=== PATIENT | female | born 1940 | race Caucasian/White ===

== ENCOUNTER 2021-08-21 14:48 | Inpatient (IN) | payer MEDICARE, OTHER ==
[~2021-08-21] VITALS: Ht 160 cm; Wt 71.0 kg
[2021-08-21 15:16] LABS: HEMATOCRIT 46.5 % (37.0-47.0); HEMOGLOBIN 15.4 g/dl (12.5-16.0); MEAN CELL VOLUME 101 fl (80.0-100.0); MEAN CORPUSCULAR HEMOGLOBIN 33 pg (27-31); MEAN CORPUSCULAR HGB CONC 33 g/dl (33.0-37.0); MEAN PLATELET VOLUME 8.9 fl (7.4-10.4); PLATELET COUNT 289 K/mm3 (130-400); RED BLOOD COUNT 4.61 M/mm3 (4.10-5.30); REDCELL DISTRIBUTION WIDTH-CV 12.7 % (11.5-14.5)
[2021-08-21 15:34] LABS: ALBUMIN 3.2 gm/dL (3.4-4.8); BILIRUBIN,TOTAL 0.6 mg/dL (0.2-1.2); CALCIUM 9.4 mg/dL (8.4-10.2); CREATININE, serum 0.67 mg/dL (0.57-1.11); POTASSIUM 4.4 mmol/L (3.5-4.5); TOTAL PROTEIN 7.6 gm/dL (6.2-8.1)
[2021-08-21 15:59] LABS: ARTERIAL BLD GAS O2 SATURATION 92.2 % (92-100); ARTERIAL BLD GAS TCO2 CT 34.3; ARTERIAL BLOOD GAS BASE EXCESS 5.6 (-2-2); ARTERIAL BLOOD GAS HCO3 32.6 meq/L (22-26); ARTERIAL BLOOD GAS PCO2 56.3 mmHg (35-45); ARTERIAL BLOOD GAS PO2 64.2 mmHg (80-100); ARTERIAL BLOOD GAS pH 7.38 (7.35-7.45)
[2021-08-21 16:12] LABS: BAND 4 % (0-10); LYMPHOCYTE 7 % (20.0-51.0); NEUTROPHILS 77 % (42.0-75.2); PLATELET ESTIMATE NORMAL (NORMAL)
[2021-08-21] MEDS ORDERED: PREDNISONE20 MG PO (17:00)
[2021-08-21] MEDS ORDERED: NORVASC 5MG5 MG/TAB PO (17:00)
[2021-08-21] MEDS ORDERED: LASIX 20MG TABL20 MG PO (17:00)
[2021-08-21] MEDS ORDERED: IPRATROPIUM BROM3 M1 IH (17:00)
[2021-08-21] MEDS ORDERED: ZITHROMAX 250M250 MG PO (17:02)
[2021-08-21] MEDS ORDERED: BENICAR 20MG TA20 MG PO (17:02)
[2021-08-21] MEDS ORDERED: ZOCOR 20MG20 MG PO (17:03)
[2021-08-21] MEDS ORDERED: TRELEGY ELLIPT1 EACH IH (17:03)
[2021-08-21] MEDS ORDERED: RESTASIS0.05% OP (17:05)
[2021-08-21] MEDS ORDERED: ASPIRIN 81M81 MG/TA2 PO ×2 (17:14)
[2021-08-21 17:25] VITALS: BP 113/53; PULSE 79; TEMP 97.8
[2021-08-21] MEDS ORDERED: TRIAMCINOLONE A15 GM TP (17:45)
[2021-08-21] MEDS ORDERED: CALCIUM 600MG+D1 TAB PO (17:48)
[2021-08-21] MEDS ORDERED: ONE DAILY ESSE0.5 M1 PO (17:48)
[2021-08-21 20:04] VITALS: BP 110/60; PULSE 85; TEMP 98.2
--- NOTE | 2021-08-21 20:24 | NUR ---
TX GIVEN VIA MOUTHPIECE, TOLERATED WELL. O2 NC ON 6L BEFORE AND AFTER TX.
[2021-08-21 23:40] VITALS: BP 105/51; PULSE 79; TEMP 98.2
[2021-08-22 04:08] VITALS: BP 131/58; PULSE 87; TEMP 97.9
[2021-08-22 05:54] LABS: HEMATOCRIT 42.4 % (37.0-47.0); HEMOGLOBIN 14.1 g/dl (12.5-16.0); MEAN CELL VOLUME 101 fl (80.0-100.0); MEAN CORPUSCULAR HEMOGLOBIN 34 pg (27-31); MEAN CORPUSCULAR HGB CONC 33 g/dl (33.0-37.0); MEAN PLATELET VOLUME 8.8 fl (7.4-10.4); PLATELET COUNT 243 K/mm3 (130-400); RED BLOOD COUNT 4.19 M/mm3 (4.10-5.30); REDCELL DISTRIBUTION WIDTH-CV 12.6 % (11.5-14.5)
--- NOTE | 2021-08-22 06:00 | NUR ---
ASSESSMENT COMPLETE FOR THIS SHIFT. PT RESTING IN BED WATCHING TV AND COUGHING A LOT. PT DENIED PAIN, PALPITATIONS, N,V,D OR DIZZINESS. PT SEEMED TO HAVE SOME SOB WITH HER COUGH. O2 REMAINED ABOVE 90%. PT NPO AT MIDNIGHT. PT AWAKE WATCHING TV MOST OF THE NIGHT. PT EXPRESSED NO OTHER NEEDS AT THIS TIME. CALL LIGHT WITHIN REACH.
[2021-08-22 06:18] LABS: ALBUMIN 2.9 gm/dL (3.4-4.8); CREATININE, serum 0.6 mg/dL (0.57-1.11); MAGNESIUM 1.9 mg/dL (1.6-2.6); PHOSPHOROUS 3.6 mg/dL (2.3-4.7); POTASSIUM 4.3 mmol/L (3.5-4.5)
[2021-08-22 06:54] LABS: BAND 2 % (0-10); LYMPHOCYTE 6 % (20.0-51.0); NEUTROPHILS 91 % (42.0-75.2); PLATELET ESTIMATE NORMAL (NORMAL)
[2021-08-22 07:47] VITALS: BP 105/46; PULSE 85; TEMP 97.8
[2021-08-22 07:48] LABS: INR 1.1 (0.8-3.0); PROTHROMBIN TIME 12.6 SECONDS (9.7-12.8)
--- NOTE | 2021-08-22 09:09 | NUR ---
PT SITTING UP IN BED. MORNING MEDICATIONS GIVEN. SHIFT ASSESSMENT COMPLETED. PT DENIES ANY PAIN. CURRENTLY ON 5L VIA NC. BREATHING IS AUDIBLY LABORED, PT HAS A WET COUGH BUT IS UNABLE TO EXPEL ANY SPUTUM. UPDATED PT ON POC. WILL CONTINUE TO MONITOR.
[2021-08-22 12:30] LABS: PLEURAL FLUID RBC 1000 /mm3 (0-0); PLEURAL FLUID WBC 2618 /mm3
[2021-08-22 12:32] LABS: PLEURAL FLUID APPEARANCE HAZY; PLEURAL FLUID COLOR YELLOW
[2021-08-22 12:58] VITALS: BP 113/45; PULSE 88; TEMP 98.3
--- NOTE | 2021-08-22 14:51 | NUR ---
ETHAN met with the patient and her son, Fredrick (ph#[phone]), to discuss discharge plan. The patient lives alone in [place]. She reports independence with ADLs and does not have any DME. The patient's PCP is Dr. Eli Stewart and she receives her medications from [facility]. The patient does not have a DPOA-HC, but she was interested in obtaining a form. SW provided. The patient states that she is and has only one child: Fredrick. The patient plans on returning home upon discharge. She is currently requiring 5 liters of oxygen. PT also notified SW that they would recommend home health and that the patient could possibly benefit from a FWW. SW discussed this with the patient and her son and provided them with Medicare.gov's list of home health agencies that serve [place]. The patient and her son are interested in home health. Fredrick would like to research the agencies first, before deciding on one. SW provided him with this SW's phone number. The patient would also like to pursue with getting a FWW and is agreeable with going through [facility]. ETHAN contacted and emailed and faxed the FWW order to [facility]. ETHAN to continue to follow. *Discharge plan: home with home health*
[2021-08-22 16:01] VITALS: BP 90/72; PULSE 74; TEMP 97.9
--- NOTE | 2021-08-22 19:12 | NUR ---
TXGIVEN VIA MASK PER PT REQUEST, TOLERATED WELL. O2 NC ON 5L BEFORE AND AFTER TX.
[2021-08-22 20:25] VITALS: BP 104/47; PULSE 81; TEMP 98.1
[2021-08-22 23:55] VITALS: BP 101/40; PULSE 74; TEMP 97.9
[2021-08-23 04:53] VITALS: BP 114/53; PULSE 70; TEMP 98.3
--- NOTE | 2021-08-23 06:05 | NUR ---
ASSESSMENT COMPLETE FOR THIS SHIFT. PT RESTING IN BED WATCHING TV. PT DENIED PAIN, PALPITATIONS, SOB, N,V,D OR DIZZINESS. PT CONTINUE TO HAVE A PRETTY BAD COUGH, BUT SHE SEEMS TO BE BREATHING EASIER THAN BEFORE. PT EXPRESSED NO OTHER NEEDS AT THIS TIME. CALL LIGHT WITHIN REACH.
[2021-08-23 07:05] LABS: HEMATOCRIT 43.5 % (37.0-47.0); HEMOGLOBIN 14.7 g/dl (12.5-16.0); MEAN CELL VOLUME 102 fl (80.0-100.0); MEAN CORPUSCULAR HEMOGLOBIN 34 pg (27-31); MEAN CORPUSCULAR HGB CONC 34 g/dl (33.0-37.0); MEAN PLATELET VOLUME 9.2 fl (7.4-10.4); PLATELET COUNT 259 K/mm3 (130-400); RED BLOOD COUNT 4.27 M/mm3 (4.10-5.30); REDCELL DISTRIBUTION WIDTH-CV 12.5 % (11.5-14.5)
[2021-08-23 07:15] LABS: LYMPHOCYTE 3 % (20.0-51.0); NEUTROPHILS 91 % (42.0-75.2)
[2021-08-23 07:17] LABS: ALBUMIN 2.8 gm/dL (3.4-4.8); CALCIUM 9.3 mg/dL (8.4-10.2); CREATININE, serum 0.81 mg/dL (0.57-1.11); MAGNESIUM 2.1 mg/dL (1.6-2.6); PHOSPHOROUS 3.6 mg/dL (2.3-4.7); PLATELET ESTIMATE NORMAL (NORMAL); POTASSIUM 4.8 mmol/L (3.5-4.5)
[2021-08-23 07:40] VITALS: BP 107/45; PULSE 72; TEMP 98
--- NOTE | 2021-08-23 08:50 | NUR ---
PT LAYING SUPINE IN BED EATING BREAKFAST. PT STATES THAT SHE IS NOT HAVING ANY SOB OR PAIN. PT STATES THAT SHE IS HAVING A NONPRODUCTIVE COUGH. PT IS ON 4 LIT VIA NC. PT STATES "I AM READY TO GET OUT OF HERE." THERAPY AT BEDSIDE TO WORK WITH PT. PT ABLE TO WALK IN HALLWAY WITH THERAPY. PT STATES NO CONCERNS OR NEEDS AT THIS TIME.
--- NOTE | 2021-08-23 11:10 | NUR ---
ETHAN contacted Katrin at [facility] to follow up about the FWW. Katrin states that they can deliver the FWW to the patient's room today. ETHAN met with the patient's son, Fredrick, to update and follow up on home health preference. Fredrick states that that he looked over the list and researched the two agencies that go out to [place]. He states that he is not impressed and pleased with their views, so he wants to hold off on home health at this time. If they change their mind, they will let ETHAN know. ETHAN discussed the option of doing outpatient therapy. Fredrick would like to see how the patient does. The patient may be able to discharge tomorrow, 08/24. The patient is down to 3 liters of oxygen. SW to continue to monitor. *Discharge plan: home, may need oxygen set up upon discharge*
[2021-08-23 11:20] VITALS: BP 113/52; PULSE 76; TEMP 98
--- NOTE | 2021-08-23 12:35 | NUR ---
AJ delivered the FWW to the patient's room.
[2021-08-23] MEDS ORDERED: DOXYCYCLINE 10100 MG PO (14:47)
[2021-08-23] MEDS ORDERED: LASIX 40MG TABL40 MG PO (15:02)
--- NOTE | 2021-08-23 15:11 | NUR ---
The clinical team is ready to discharge the patient today. An exercise oximetry was ordered. RT notified SW that the patient qualified for 4 liters of oxygen. SW met with the patient to update and discuss DME companies. The patient would like to go ahead and get the oxygen from where she got her FWW, [facility]. The patient states that her son is from [place], but plans to stay with her for a couple more weeks upon discharge. SW contacted and emailed and faxed the oxygen order to Katrin at [facility]. Katrin states that they will not have a p d driver able to deliver the oxygen and asked that the patient's son leaf size picker the oxygen from them between 4:00-4:30. SW contacted and updated the patient's son, Fredrick, on the above. Fredrick is in agreement to the plan and plans to leaf size picker the oxygen around that time. SW updated the patient's RN. The patient is to discharge back home today, 08/23, with assistance from her son. No additional needs at this time.
== END 2021-08-23 16:35 | disposition home or self-care (01) | DRG 189 ==
LOC: COL.ER 14:48 → MEDICAL 16:22
PROVIDERS: Family Medicine; ADMIT Internal Medicine
PROC: 0W9B3ZZ Drainage of Left Pleural Cavity, Percutaneous Approach (ICD-10-PCS; principal; 2021-08-21)
DX: J96.21 Acute and chronic respiratory failure with hypoxia (principal); J44.1 Chronic obstructive pulmonary disease with (acute) exacerbation; J90 Pleural effusion, not elsewhere classified; E87.1 Hypo-osmolality and hyponatremia; I10 Essential (primary) hypertension; E78.5 Hyperlipidemia, unspecified; K74.60 Unspecified cirrhosis of liver; H04.129 Dry eye syndrome of unspecified lacrimal gland; D72.829 Elevated white blood cell count, unspecified; T38.0X5A Adverse effect of glucocorticoids and synthetic analogues, initial encounter; E87.5 Hyperkalemia; Z79.82 Long term (current) use of aspirin; Z79.52 Long term (current) use of systemic steroids; Z87.891 Personal history of nicotine dependence
CPT/HCPCS: 99223-AI; 99233-AI; 99239; J0696; J1650; J1940; J2920; J2930; Q9967